=== PATIENT | female | born 1980 | race Caucasian/White ===

== ENCOUNTER 2019-11-14 15:25 | Observation (INO) | payer SELFPAY ==
[~2019-11-14] VITALS: Ht 152.4 cm; Wt 73.0 kg
[2019-11-14] MEDS ORDERED: PREN-217 PO (15:48)
[2019-11-14 16:30] VITALS: BP 104/62
== END 2019-11-14 16:25 | disposition home or self-care (01) ==
LOC: 4S 15:25
PROVIDERS: ADMIT Obstetrics & Gynecology; ATTEND Obstetrics & Gynecology
DX: O46.93 Antepartum hemorrhage, unspecified, third trimester (principal); Z3A.39 39 weeks gestation of pregnancy
CPT/HCPCS: 59025; 81001; G0378